=== PATIENT | female | born 1995 | race Two or more races ===

== ENCOUNTER 2019-10-13 18:58 | Emergency (ER) | payer SELFPAY ==
[~2019-10-13] VITALS: Ht 160 cm; Wt 61.0 kg
[2019-10-13 20:58] VITALS: BP 121/75
== END 2019-10-13 21:17 | disposition home or self-care (01) ==
LOC: ER 18:58
DX: S61.317A Laceration without foreign body of left little finger with damage to nail, initial encounter (principal); F12.10 Cannabis abuse, uncomplicated; Z88.0 Allergy status to penicillin; Y04.0XXA Assault by unarmed brawl or fight, initial encounter; Y93.89 Activity, other specified; Y92.89 Other specified places as the place of occurrence of the external cause; Y99.8 Other external cause status
CPT/HCPCS: 99283